=== PATIENT | female | born 2000 | race African-American/Black ===

== ENCOUNTER 2025-05-26 05:03 | Inpatient (IN) | payer OTHER, MEDICAID ==
[2025-05-25 15:03] LABS: Hematocrit 32.6 % (34.9-44.5); Hemoglobin 10.8 g/dL (12.0-15.5); Platelet Count 233 10x3/uL (150-450)
[2025-05-25 15:45] LABS: Syphilis Antibody Index 0.05 S/CO (<1.00 Non-Reactive)
[2025-05-25 15:46] LABS: Hep B Surf Ag Non-Reactive S/CO (NonReactive)
[2025-05-26 05:14] VITALS: BMI 30.8
[2025-05-26] MEDS ORDERED: hydrALAZINE 20 MG/ML VIAL SLOW IVP PRN ×2 (05:57→08:51)
[2025-05-26] MEDS ORDERED: Tranexamic Acid 1,000 MG/10 ML VIAL IVP PRN (05:57)
[2025-05-26] MEDS ORDERED: Methylergonovine 0.2 MG/ML VIAL IM PRN ×2 (05:57→08:51)
[2025-05-26] MEDS ORDERED: Diphenoxylate HCl/Atropine Tablet PO PRN ×4 (05:57→21:00)
[2025-05-26] MEDS ORDERED: Ondansetron PF 4 MG/2 ML Vial IVP PRN ×4 (05:57→09:00)
[2025-05-26] MEDS ORDERED: Acetaminophen 500 MG TAB PO PRN (05:57)
[2025-05-26] MEDS ORDERED: Carboprost 250 MCG/ML AMP IM PRN (05:57)
[2025-05-26] MEDS ORDERED: Bicitra 30 ML UDCUP PO PRN (05:57)
[2025-05-26] MEDS: Famotidine/PF 20 mg/2ml Vial SLOW IVP PRN (07:04)
[2025-05-26] MEDS ORDERED: Lanolin Ointment 7 GM TUBE TOP PRN (08:51)
[2025-05-26] MEDS ORDERED: Boostrix 0.5 ML (Tdap) VIAL (>/=7 yrs of age) IM ONE (08:51)
[2025-05-26] MEDS ORDERED: Simethicone Chewable 80 MG TAB PO PRN (08:51)
[2025-05-26] MEDS ORDERED: diphenhydrAMINE 50 MG/ML VIAL IVP PRN (09:00)
[2025-05-26] MEDS ORDERED: Oxytocin 30 units/NS 500 ML 500 ML IV SCH (09:00)
[2025-05-26] MEDS ORDERED: Meperidine HCl/PF 25 MG (1 mL) VIAL SLOW IVP PRN (09:00)
[2025-05-26] MEDS ORDERED: HYDROmorphone 0.5 MG/0.5 ML SYRINGE SLOW IVP PRN (09:00)
[2025-05-26] MEDS: Oxytocin 30 units/NS 500 ML 500 ML IV SCH (09:06)
[2025-05-26] MEDS: Ketorolac Tromethamine 30 MG (1 mL) VIAL IVP SCH (10:31)
[2025-05-26] MEDS: Ketorolac Tromethamine 30 MG (1 mL) VIAL IVP PRN (16:41)
[2025-05-26] MEDS: Ferrous Sulfate 325 MG TAB PO SCH (19:00)
[2025-05-26] MEDS: Dexamethasone 10 MG/ML VIAL ONE (19:33)
[2025-05-26] MEDS: Oxytocin 10 UNITS/ML VIAL ONE (19:34)
[2025-05-26] MEDS: Ondansetron PF 4 MG/2 ML Vial ONE (19:34)
[2025-05-26] MEDS: Phenylephrine 40 MG/NS 250 ML 250 ML ONE (19:34)
[2025-05-26] MEDS: Erythromycin Base 0.5% Oint 1 GM TUBE ONE (19:35)
[2025-05-27 05:37] LABS: Hematocrit 28.7 % (34.9-44.5); Hemoglobin 9.6 g/dL (12.0-15.5); Mean Corpuscular Hemoglobin 32.1 pg (27.0-33.0); Mean Corpuscular Volume 96.0 fL (81.6-98.3); Platelet Count 195 10x3/uL (150-450); Red Blood Cell (RBC) Count 2.99 10x6/uL (3.90-5.03); White Blood Cell (WBC) Count 12.06 10x3/uL (3.5-10.5)
[2025-05-27] MEDS: HYDROcodone/Acetaminophen 5/325 mg Tablet PO PRN (08:46)
[2025-05-27] MEDS: Ibuprofen 800 MG TAB PO SCH (15:24)
[2025-05-28 08:40] VITALS: BP 101/62; TEMP 98.2
== END 2025-05-28 15:15 | disposition home or self-care (01) | DRG 788 ==
LOC: CSHLD 05:03 → CSHPP 11:30
PROVIDERS: ADMIT Family Medicine; ATTEND Family Medicine
PROC: 10D00Z1 Extraction of Products of Conception, Low, Open Approach (ICD-10-PCS; principal; 2025-05-26)
PROC: 4A1HXCZ Monitoring of Products of Conception, Cardiac Rate, External Approach (ICD-10-PCS; 2025-05-26)
PROC: 3E03329 Introduction of Other Anti-infective into Peripheral Vein, Percutaneous Approach (ICD-10-PCS; 2025-05-26)
DX: O34.211 Maternal care for low transverse scar from previous cesarean delivery (principal); O99.02 Anemia complicating childbirth; Z3A.39 39 weeks gestation of pregnancy; Z79.899 Other long term (current) drug therapy; Z79.82 Long term (current) use of aspirin
CPT/HCPCS: 51702; 85014; 85018; 85027; 85049; 86780; 86850; 86900; 86901; 87340; J1100; J1308; J1885; J2274; J2405; J2590; J3010; J7120